=== PATIENT | male | born 1995 | race Caucasian/White ===

== ENCOUNTER 2016-07-11 21:27 | Emergency (ER) | payer SELFPAY ==
[~2016-07-11 21:27] MED LIST: AMOXICILLIN 50500 MG PO; CELEXA 20MG20 MG/TA1 PO; DEPAKOTE ER500 M1 PO; EXCEDRIN EXTRA1 EACH PO; FLEXERIL 1010 MG/TAB PO; FLEXERIL5 MG; HYDROCORTISONE RC; LISINOPRIL10 MG PO; MELOXICAM15 MG PO; MIDRIN PO; MIRALAX17 GM/DOSE PO; NO HOME MEDICATIONS; NORCO 325 MG-101 TA1 PO; NORCO 325 MG-101 TAB; NORCO 325 MG-51 TA1 PO; NORCO 325 MG-51 TAB PO; OXYCODONE5 M1 PO; PREDNISONE10 M1 PO; PRILOSEC 20MG20 MG PO; QUALITY CHOICE200 M3 PO; ULTRAM 50MG TAB50 MG PO; ULTRAM50 M1 PO; ULTRAM50 MG PO; ZITHROMAX Z PA250 MG PO
[2016-07-11] MEDS ORDERED: EXCEDRIN EXTRA1 EACH PO (21:48)
[2016-07-12 00:43] VITALS: BP 132/75
== END 2016-07-12 00:43 | disposition home or self-care (01) ==
LOC: ED 21:27
DX: S39.012A Strain of muscle, fascia and tendon of lower back, initial encounter (principal); R41.82 Altered mental status, unspecified; M54.5 Low back pain; F17.210 Nicotine dependence, cigarettes, uncomplicated; F12.10 Cannabis abuse, uncomplicated; X58.XXXA Exposure to other specified factors, initial encounter
CPT/HCPCS: J1885

== ENCOUNTER → 2017-02-24 | Outpatient (CLI) | payer SELFPAY | LOC: LAB 17:57 | DX: Z20.2 Contact with and (suspected) exposure to infections with a predominantly sexual mode of transmission (principal) ==

== ENCOUNTER 2017-04-15 12:13 | Emergency (ER) | payer OTHER ==
[2017-04-15 12:22] VITALS: BP 163/61
[2017-04-15 13:20] LABS: EOS # 0.2 (0.04-0.40); HEMATOCRIT 42.6 % (42.0-52.0); HEMOGLOBIN 15.2 g/dL (13.5-18.0); LYMPH# 2.3 (1.50-4.00); MEAN CELL VOLUME 87 fl (78-100); MEAN CORPUSCULAR HEMOGLOBIN 31 pg (27-31); MEAN CORPUSCULAR HGB CONC 36 g/dL (33-37); MEAN PLATELET VOLUME 10.8 fl (7.4-10.4); MONO # 0.6 (0.20-0.80); PLATELET COUNT 249 K/mm3 (130-400); RED BLOOD COUNT 4.88 M/mm3 (4.20-5.60); RED CELL DISTRIBUTION WIDTH 12.8 % (11.5-14.5)
[2017-04-15 13:34] LABS: ALBUMIN 4.2 g/dL (3.5-5.0); BUN/CREATININE RATIO 12.4 (6.0-26.0); CALCIUM 9.4 mg/dL (8.4-10.2); POTASSIUM 4.1 mmol/L (3.6-5.0); TOTAL BILIRUBIN 0.9 mg/dL (0.2-1.3); TOTAL PROTEIN 6.9 g/dL (6.3-8.2)
== END 2017-04-15 14:45 | disposition left against medical advice (07) ==
LOC: ED 12:13
PROVIDERS: Physician Assistant
DX: M54.6 Pain in thoracic spine (principal); Z53.21 Procedure and treatment not carried out due to patient leaving prior to being seen by health care provider; M79.605 Pain in left leg; M79.604 Pain in right leg; R20.0 Anesthesia of skin; F31.9 Bipolar disorder, unspecified; Z87.820 Personal history of traumatic brain injury; F17.210 Nicotine dependence, cigarettes, uncomplicated